=== PATIENT | male | born 1990 | race Caucasian/White ===

== ENCOUNTER 2023-04-26 12:00 | Emergency (ER) | payer BC, MEDICAID ==
[~2023-04-26] VITALS: Ht 180.3 cm; Wt 98.2 kg
[2023-04-26 12:00] VITALS: BP 134/77; TEMP 97.8; O2SAT 96
[2023-04-26] MEDS ORDERED: ACET-907 PO (12:18)
[2023-04-26] MEDS ORDERED: NS 1,000 ML IV ONE (12:35)
[2023-04-26] MEDS ORDERED: ONDANSETRON 4MG 2ML VIAL IV ONE (12:35)
[2023-04-26] MEDS ORDERED: PANTOPRAZOLE 40MG VIAL IV ONE (12:35)
[2023-04-26 12:52] LABS: BASO % 0.2 % (0.0-1.0); EOS # 0.2 10^3/uL (0.0-0.5); EOS % 1.3 % (0.0-3.0); HEMATOCRIT 39.6 % (42.0-52.0); HEMOGLOBIN 13.8 g/dl (13.5-17.5); LYMPH # 0.9 10^3/uL (1.5-5.0); LYMPH % 6.1 % (24.0-44.0); MEAN CORPUSCULAR HEMOGLOBIN 29.2 pg (27.0-33.0); MEAN CORPUSCULAR HGB CONC 34.8 g/dl (32.0-36.5); MEAN CORPUSCULAR VOLUME 83.9 fl (80.0-96.0); MONO % 6.7 % (2.0-8.0); NEUTROPHILS # 12.6 10^3/uL (1.5-8.5); NEUTROPHILS % 85.3 % (36.0-66.0); PLATELET COUNT, AUTOMATED 226 10^3/uL (150-450); RED BLOOD COUNT 4.72 10^6/uL (4.30-6.10); WHITE BLOOD COUNT 14.7 10^3/uL (4.0-10.0)
[2023-04-26 13:07] LABS: ALBUMIN 3.3 G/DL (3.2-5.2); BILIRUBIN,DIRECT 0.5 MG/DL (<0.4); BILIRUBIN,TOTAL 0.9 MG/DL (0.3-1.2); TOTAL PROTEIN 7.3 G/DL (5.7-8.2)
[2023-04-26 13:18] LABS: RSV AMPLIFICATION NEGATIVE (NEGATIVE)
[2023-04-26] MEDS ORDERED: ISOVUE-370 76% 100ML VIAL As Ordered ONE (13:57)
[2023-04-26] MEDS ORDERED: KETOROLAC 30 MG/ML 1ML VIAL IV ONE (15:05)
[2023-04-26] MEDS ORDERED: ONDA4TAB6 PO (15:35)
[2023-04-26] MEDS ORDERED: HYDR-3713 PO (15:35)
[2023-04-26] MEDS ORDERED: KETO10TAB PO (15:35)
== END 2023-04-26 15:50 | disposition home or self-care (01) ==
LOC: M ED 12:00
DX: K85.90 Acute pancreatitis without necrosis or infection, unspecified (principal); Z88.1 Allergy status to other antibiotic agents; Z79.899 Other long term (current) drug therapy; Z79.1 Long term (current) use of non-steroidal anti-inflammatories (NSAID)
CPT/HCPCS: 74177; 80047; 80076; 81001; 83690; 85025; 87631; 96361; 96374; 96375; 99283; C9113; J1885; J2405; Q9967